=== PATIENT | male | born 1995 | race Two or more races ===

== ENCOUNTER 2018-12-12 06:24 | Emergency (ER) | payer SELFPAY ==
[~2018-12-12] VITALS: Ht 188 cm; Wt 106.6 kg
--- NOTE | 2018-12-12 06:35 | NUR ---
BIB FAMILY, AA/OX4 C/C LT SIDED CHEST PAIN X 30 MIN. SKIN PINK, WARM, DRY. DENIES N/V/D. NO S/S SOB. WOKEN UP BY PAIN, STABBING TYPE PAIN, NON RADIATING, 6/10 PAIN, INTERMITTEN PAIN. MOVES ALL EXTREMITIES WELL. VSS. NAD. WILL CONTINUE TO MONITOR.
[2018-12-12] MEDS ORDERED: LORAZEPAM 0.5 MG TABLET ONE (06:58)
[2018-12-12] MEDS ORDERED: LORAZEPAM 1 MG TABLET PO ONE (07:00)
--- NOTE | 2018-12-12 07:01 | NUR ---
LAB AND XRAY AT BEDSIDE
[2018-12-12 07:10] LABS: BASOPHILS # (AUTO) 0.2 /CMM (0.0-0.2); BASOPHILS % (AUTO) 3.9 % (0.0-2.0); EOSINOPHILS % (AUTO) 3.1 % (0.0-6.0); HEMATOCRIT 42 % (39-51); HEMOGLOBIN 14.5 g/dL (13.5-17.5); LYMPHOCYTES # (AUTO) 1.4 /CMM (0.8-4.8); MEAN CORPUSCULAR HGB CONC 34 g/dl (31.0-36.0); MEAN CORPUSCULAR VOLUME 85 fL (80-96); MONOCYTES # (AUTO) 0.6 /CMM (0.1-1.30); MONOCYTES % (AUTO) 9.4 % (2.0-12.0); NEUTROPHILS # (AUTO) 3.8 /CMM (1.8-8.9); NEUTROPHILS % (AUTO) 60.6 % (43.0-81.0); PLATELET COUNT (AUTO) 322 /CMM (150-450); RED BLOOD CELL COUNT(AUTO) 4.96 MIL/uL (4.5-6.0); WHITE BLOOD COUNT (AUTO) 6.2 K/uL (4.3-11.0)
--- NOTE | 2018-12-12 07:20 | NUR ---
PT ENDORSED TO ONCOMING SHIFT BOBY COATS. PT STABLE CONDITION. VSS. NAD. STABLE CONDITION.
[2018-12-12 07:23] LABS: CALCIUM, SERUM 9.1 mg/dL (8.5-10.1); CARBON DIOXIDE 26 mmol/L (21-32); CHLORIDE 107 mmol/L (98-107); CREATININE 1.1 mg/dL (0.6-1.3); GLUCOSE 93 mg/dL (74-106); SODIUM SERUM 141 mmol/L (136-145); UREA NITROGEN, BLOOD 11 mg/dL (7-18)
--- NOTE | 2018-12-12 07:38 | NUR ---
ekg edit time to be @ [id number]
[2018-12-12 07:53] VITALS: BP 140/75
--- NOTE | 2018-12-12 07:54 | NUR ---
States Feeling Better-For discharge. Aftercare Instructions given Home ambulatory with family Stable
== END 2018-12-12 07:56 | disposition home or self-care (01) ==
LOC: ER 06:41
DX: R07.89 Other chest pain (principal); F17.200 Nicotine dependence, unspecified, uncomplicated
CPT/HCPCS: 36415; 71045-TC; 80048-TC; 84484-TC; 85025-TC